=== PATIENT | male | born 1980 | race Caucasian/White ===

== ENCOUNTER 2020-01-10 04:25 | Emergency (ER) | payer SELFPAY ==
[~2020-01-10] VITALS: Ht 180.3 cm; Wt 102.0 kg
[2020-01-10 04:28] VITALS: BP 126/83
[2020-01-10] MEDS ORDERED: ondansetron 4mg rapidly disintigrating tab PO ONE (04:45)
[2020-01-10] MEDS ORDERED: HYDROcodone/acetaminophen 10/325mg tab PO ONE (04:45)
[2020-01-10] MEDS ORDERED: acetaminophen 325mg tablet PO ONE (04:45)
[2020-01-10] MEDS ORDERED: ACET-812 PO (04:46)
[2020-01-10] MEDS ORDERED: HYDR-3965 PO (04:46)
== END 2020-01-10 04:59 | disposition home or self-care (01) ==
LOC: ER 04:25
DX: M54.89 Other dorsalgia (principal); Z88.6 Allergy status to analgesic agent; Z79.899 Other long term (current) drug therapy
CPT/HCPCS: 99284

== ENCOUNTER → 2020-08-06 | Day surgery (SDC) | payer OTHER ==
[2020-07-30 14:50] LABS: BASOPHILS % (AUTO) 0.8 % (0-1); EOSINOPHILS % (AUTO) 0.7 % (0-6); LYMPHOCYTES # (AUTO) 2.2 X10'3 (1.1-4.8); LYMPHOCYTES % (AUTO) 39.6 % (21-51); MEAN CORPUSCULAR HEMOGLOBIN 31.3 PG (27.0-31.0); MEAN CORPUSCULAR HGB CONC 33.5 g/dL (33.0-36.5); MEAN CORPUSCULAR VOLUME 93.4 FL (78-98); MEAN PLATELET VOLUME 7.3 FL (7.4-10.4); MONOCYTES # (AUTO) 0.4 X10'3 (0-0.9); MONOCYTES % (AUTO) 6.5 % (2-12); NEUTROPHILS # (AUTO) 2.9 X10'3 (1.8-7.7); NEUTROPHILS % (AUTO) 52.4 % (42-75); PRE OP HEMATOCRIT 42.8 % (42.0-52.0); PRE OP HEMOGLOBIN 14.4 g/dL (14.0-17.9); PRE OP PLATELET COUNT 260 X10'3 (140-440); RED BLOOD COUNT 4.58 X10'6 (4.70-6.10); RED CELL DISTRIBUTION WIDTH 13.2 % (11.5-14.5)
[2020-07-30 15:09] LABS: ALBUMIN 4.2 G/DL (3.4-5.0); ALBUMIN/GLOBULIN RATIO 1.4 (1.1-1.5); ALKALINE PHOSPHATASE 47 IU/L (46-116); BLOOD UREA NITROGEN 20 MG/DL (7-18); BUN/CREATININE RATIO 19.6 (5.4-32.0); CALCIUM 8.9 MG/DL (8.5-10.1); CHLORIDE 104 MMOL/L (99-107); CREATININE 1.02 MG/DL (0.60-1.10); PRE OP ALT 63 U/L (30-65); PRE OP ANION GAP 10 (8-16); PRE OP AST 46 U/L (10-37); PRE OP BILIRUB, TOTAL 0.3 MG/DL (0.0-1.0); PRE OP GLUCOSE 80 MG/DL (70-104); PRE OP POTASSIUM 3.6 MMOL/L (3.4-5.1); PRE OP SODIUM 141 MMOL/L (135-145); TOTAL CARBON DIOXIDE 27.2 MMOL/L (24-32); TOTAL PROTEIN 7.1 G/DL (6.4-8.2); eGFR 80 ML/MIN
[2020-07-30 15:15] LABS: PRE OP PROTIME 10.4 SECONDS (9.0-12.0)
[2020-08-06] VITALS (14 sets, daily range): BP systolic 115–147; BP diastolic 69–110
[~2020-08-06] VITALS: Ht 180.3 cm; Wt 95.3 kg
[~2020-08-06] MED LIST: CHOL20004 PO; LEVO88TA2 PO; LIDOcaine 1% W/epiNEPHrine 1:100,000 20ml vial ONE; LIDOcaine 2% (20mg/ml) 5ml vial ONE; MULT-1085 PO; acetaminophen 1,000mg/100ml IV 100 ML IV ONE; cefTAZidime 1gm inj ONE; cocaine 4% topical solution 4ml bottle ONE; dexamethasone sod phosphate 4mg/ml inj. ONE; diazepam 5mg tablet PO PRN; famotidine 20mg tablet PO ONE; fentaNYL/PF 50MCG/1 ML 2ML syringe ONE; glycopyrrolate 0.2mg/ml inj ONE; meperidine/PF 25mg/ml syringe IV PRN; midazolam 1 mg/ML 2ml injection ONE; morphine 2 MG/ML inj. syringe IV PRN; morphine 4 MG/ML inj SYRINge IV PRN; mupirocin 2% ointment 22GM ONE; ondansetron/PF 4mg/2ml inj IV PRN; ondansetron/PF 4mg/2ml inj ONE; oxymetazoline 15 ML nasal spray NS ONE; proCHLORperazine 10 MG/2 ml inj IV PRN; propofol inj 20 ML IV ONE; ringers solution, lacted 1,000 ML IV SCH; sevoflurane 250ml liquid IH ONE
[2020-08-06] MEDS: oxymetazoline 15 ML nasal spray NS PRN ×3 (07:25→09:12)
--- NOTE | 2020-08-06 09:43 | NUR ---
Received from OR via , accompanied by Anesthesiologist DR BECKFORD and report given by Anesthesiolgist. PT PRESERNTS WITH 20G LEFT HAND, VSS. Addendum: 08/06/20 at 0997 by Corin Fitch RN, RN Amended: Links added.
== END | disposition home or self-care (01) ==
LOC: PAS 06:01
PROVIDERS: ATTEND Otolaryngology
DX: J34.2 Deviated nasal septum (principal); J34.3 Hypertrophy of nasal turbinates; G47.33 Obstructive sleep apnea (adult) (pediatric); F41.9 Anxiety disorder, unspecified; F43.10 Post-traumatic stress disorder, unspecified; Z87.11 Personal history of peptic ulcer disease; Z88.8 Allergy status to other drugs, medicaments and biological substances; Z91.09 Other allergy status, other than to drugs and biological substances; Z20.822 Contact with and (suspected) exposure to COVID-19; Z98.890 Other specified postprocedural states; Z72.89 Other problems related to lifestyle; Z79.899 Other long term (current) drug therapy; Z79.01 Long term (current) use of anticoagulants
CPT/HCPCS: 30140; 30520; 36415; 80053; 82948; 85025; 85576; 85610; 85730; 93005; A6402; C9250; J0131; J0713; J1100; J2001; J2250; J2405; J2704; J3010; J7040; U0003; U0005; A4618; A7000; J3490; J7120

== ENCOUNTER 2024-11-21 01:53 | Emergency (ER) | payer OTHER ==
[~2024-11-21] VITALS: Ht 180.3 cm; Wt 97.7 kg
[~2024-11-21 01:53] MED LIST changes: -LIDOcaine 1% W/epiNEPHrine 1:100,000 20ml vial ONE; -LIDOcaine 2% (20mg/ml) 5ml vial ONE; -acetaminophen 1,000mg/100ml IV 100 ML IV ONE; -cefTAZidime 1gm inj ONE; -cocaine 4% topical solution 4ml bottle ONE; -dexamethasone sod phosphate 4mg/ml inj. ONE; -diazepam 5mg tablet PO PRN; -famotidine 20mg tablet PO ONE; -fentaNYL/PF 50MCG/1 ML 2ML syringe ONE; -glycopyrrolate 0.2mg/ml inj ONE; -meperidine/PF 25mg/ml syringe IV PRN; -midazolam 1 mg/ML 2ml injection ONE; -morphine 2 MG/ML inj. syringe IV PRN; -morphine 4 MG/ML inj SYRINge IV PRN; -mupirocin 2% ointment 22GM ONE; -ondansetron/PF 4mg/2ml inj IV PRN; -ondansetron/PF 4mg/2ml inj ONE; -oxymetazoline 15 ML nasal spray NS ONE; -proCHLORperazine 10 MG/2 ml inj IV PRN; -propofol inj 20 ML IV ONE; -ringers solution, lacted 1,000 ML IV SCH; -sevoflurane 250ml liquid IH ONE
[2024-11-21 01:54] VITALS: BP 134/85; PULSE 83; RESP 16; TEMP 97.7; O2SAT 98
--- NOTE | 2024-11-21 02:21 | Physician Documentation ---
History of Present Illness ~ Chief Complaint: Ankle pain Stated Complaint: ANKLE PAIN Time Seen by MD: 02:09 HPI Patient presents to the emergency room for evaluation right ankle pain. He states he has bring the trash cans out to the curb when he rolled his ankle on the curb. No other injuries. Tetanus witin 5 years: No Medication Reconciliation Allergies: Coded Allergies: NSAIDS (Non-Steroidal Anti-Inflamma (Verified Adverse Reaction, Unknown, only has 1 kidney, 01/10/20) adhesive tape (Verified Adverse Reaction, Unknown, 01/10/20) Scheduled Cholecalciferol (Vitamin D), 1 TAB PO DAILY, (Reported) Levothyroxine Sodium (Synthroid), 1 TAB PO DAILY, (Reported) Multivitamin (Multi Vitamin Daily), Unknown Dose PO DAILY, (Reported) Review of Systems ROS All review of systems negative except as per HPI Physical Exam Vital Signs: Temperature: 97.7, Source: Temporal, Heart Rate: 83, Respiratory Rate: 16, BP: 134/85, Pulse Oximetry: 98, Weight: 97.730 Oxygen Flow Rate: 0 Physical Exam General: Patient is awake, alert, oriented x4 in no acute distress Head: Normocephalic and atraumatic. Eyes: Conjunctival normal. EOMI. PERRL. ENT: Mucous membranes moist. Neck: Supple, trachea is midline. Chest: Clear to auscultation bilaterally without rales, rhonchi, or wheezes. There is no accessory muscle use or retractions. Cardiac: RRR without murmurs, gallops, or rubs. Abd: Soft, nondistended, nontender, with normoactive bowel sounds. No guarding, rebound, or rigidity. Extremities: Left lower extremity normal, right lower extremity with swelling and tenderness to palpation to right lateral malleolus. Neurovascularly intact Progress Results/Orders Results/Orders Orders - KORY VALLES MD Ankle, Complete(3vw Min) (11/21/24 02:12) Completed Orders - KORY VALLES MD Ankle, Complete(3vw Min) (11/21/24 02:12) Vital Signs 11/21/24 01:54 Temp 97.7 Pulse 83 Resp 16 B/P (MAP) 134/85 Pulse Ox 98 O2 Flow Rate 0 EKG/XRAY/CT/US/VASC/MRI Bone/Soft Tissue X-Ray (Ext.) : Additional Comment Ankle series interpreted by myself is negative for fractures, dislocations or foreign bodies Medical Decision Making Additional info obtained from: other Findings Patient presented to the emergency room for evaluation of ankle pain as per HPI differentials include but are not limited to fractures, dislocations, soft tissue injury, DVT. Symptoms inconsistent with DVT. X-ray shows no fractures. Possible tendinous rupture. This was discussed with the patient in the need to follow up. Patient placed in splint in his neurovascularly intact status post splint placement. General Diff Dx:Considerations: Include: Abrasion, Contusion, Fracture, Hematoma, Laceration, Malunion, Neurovascular injury, Open fracture, Sprain, Ulcer, Other Knee Diff Dx:Considerations: Include: Abrasion, Arthritis, Contusion, DJD, Fracture-femur, Fracture-fibula, Fracture-patella, Fracture-tibia, Gout, Hematoma, Laceration, Meniscus injury, Neurovascular injury, Open fracture, Rheumatoid arthritis, Septic, Sprain, Sprain-MCL, Sprain-LCL, Sprain-ACL, Sprain-PCL, Other Ankle Diff Dx:Considerations: Include: Abrasion, Arthritis, Contusion, DJD, Fracture-metatarsal, Fracture-fibula, Fracture-tarsal, Fracture-tibia, Gout, Hematoma, Laceration, Malunion, Neurovascular injury, Nonunion, Open fracture, Osteomyelitis, Rheumatoid arthritis, Sprain, Septic, Ulcer, Other Foot Diff Dx:Considerations: Include: Abrasion, Arthritis, Cellulitis, Contusion, Dislocation, DJD, Fracture-metatarsal, Fracture-phalynx, Fracture- tarsal, Gout, Hematoma, Ingrown toenail, Laceration, Malunion, Neurovascular injury, Open fracture, Paronychia, Puncture, Rheumatoid, Sprain, Septic, Subungual hematoma, Ulcer, Other Toe Diff Dx:Considerations: Include: Abrasion, Cellulitis, Contusion, Dislocation, Felon, Fracture, Hematoma, Laceration, Neurovascular injury, Open f racture, Paronychia, Subungual hematoma, Other Departure Disposition: 01 HOME / SELF CARE / HOMELESS Impression: Primary Impression: Sprain of ankle Condition: Stable Discharge Instructions: Ankle Sprain Additional Instructions: That has no improvement after one-week follow up with your doctor for re- evaluation as you may need repeat imaging/referral for advanced imaging that has soft tissue injury such as tendinous rupture can not be ruled out with an x-ray. Ibuprofen and Tylenol for pain. Ice may be of benefit with frostbite precautions. Referrals: NO PRIMARY CARE PROVIDER (PCP) Signature Scribe Signature: No scribe Attestation: The note accurately reflects work and decisions made by me.Kory Valles MD 11/21/24 02:21 KORY VALLES MD Nov 21, 2024 02:21
[2024-11-21] MEDS ORDERED: HYDR-3965 PO (02:26)
--- NOTE | 2024-11-21 02:36 | RADIOLOGY REPORT ---
CLINICAL INDICATION: ANKLE PAIN RIGHT TECHNIQUE: DI ANKLE, COMPLETE(3VW MIN) Comparison: None FINDINGS/IMPRESSION: : There is no evidence of acute fracture or dislocation. Soft tissues are unremarkable.
== END 2024-11-21 02:45 | disposition home or self-care (01) ==
LOC: ER 01:53
DX: S93.401A Sprain of unspecified ligament of right ankle, initial encounter (principal); Z88.6 Allergy status to analgesic agent; Z91.048 Other nonmedicinal substance allergy status; X50.1XXA Overexertion from prolonged static or awkward postures, initial encounter; Y93.89 Activity, other specified; Y92.89 Other specified places as the place of occurrence of the external cause; Y99.8 Other external cause status
CPT/HCPCS: 73610; 99283; L4360